=== PATIENT | male | born 1935 | race Caucasian/White ===

== ENCOUNTER 2018-06-03 10:47 | Outpatient (CLI) | payer OTHER | END 2018-06-03 23:59 | disposition home or self-care (01) | LOC: CFH 10:47 | PROVIDERS: ATTEND Orthopaedic Surgery | DX: J44.9 Chronic obstructive pulmonary disease, unspecified (principal); M16.12 Unilateral primary osteoarthritis, left hip; M19.022 Primary osteoarthritis, left elbow; M19.021 Primary osteoarthritis, right elbow; M17.0 Bilateral primary osteoarthritis of knee; M25.462 Effusion, left knee; M47.816 Spondylosis without myelopathy or radiculopathy, lumbar region | CPT/HCPCS: 71046; 72100; 94060; 94726; 94729 ==